=== PATIENT | female | born 1995 | race Caucasian/White ===

== ENCOUNTER 2017-02-10 20:11 | Inpatient (IN) | payer OTHER ==
[~2017-02-10] VITALS: Ht 165.1 cm; Wt 102.1 kg
[~2017-02-10 20:11] MED LIST: BENZTROPINE MESY1 M1 PO; FLUPHENAZINE HC10 M1 PO; FLUPHENAZINE HCL5 M1 PO; GABAPENTIN100 M2 PO; HYDROXYZINE PAM50 M1 PO; LITHIUM CARBON300 M6 PO; LITHIUM CARBON450 M1 PO; PRAZOSIN HCL1 M1 PO; VENLAFAXINE HC150 MG PO; VYVANSE40 M1 PO
--- NOTE | 2017-02-10 20:34 | ED GENERAL ADULT ---
History of Present Illness General Chief Complaint: Psychiatric Related Complaint Stated Complaint: TOOK ALMOST A WHOLE BOTTLE OF TYLENOL PER MOM +SI Source: patient, family Exam Limitations: no limitations Vital Signs & Intake/Output Vital Signs & Intake/Output Vital Signs Date Time Temp Pulse Resp B/P Pulse O2 O2 Flow FiO2 Ox Delivery Rate 02/10 2239 97.0 115 18 118/58 96 Room Air 02/11 2016 98.5 106 18 123/80 98 Room Air Allergies Coded Allergies: NO KNOWN ALLERGIES (10/07/16) Reconcile Medications Benztropine Mesylate 1 MG TABLET 1 TAB PO DAILY MENTAL HEALTH (Reported) Fluphenazine HCl 10 MG TABLET 1 TAB PO DAILY MENTAL HEALTH (Reported) Fluphenazine HCl 5 MG TABLET 3 TAB PO QPM MENTAL HEALTH (Reported) Gabapentin 100 MG CAPSULE 1 CAP PO TID MENTAL HEALTH (Reported) Hydroxyzine Pamoate 50 MG CAPSULE 1 CAP PO BIDP PRN MENTAL HEALTH (Reported) Lisdexamfetamine Dimesylate (Vyvanse) 40 MG CAPSULE 1 CAP PO DAILY ADD ( Reported) [place] Carbonate (Easton Carbonate ER) 450 MG TABLET.ER 1 TAB PO DAILY MENTAL HEALTH (Reported) [place] Carbonate ([place] Carbonate ER) 300 MG TABLET.ER 1 TAB PO QPM MENTAL HEALTH (Reported) [place] Carbonate ([place] Carbonate ER) 450 MG TABLET.ER 1 TAB PO QPM MENTAL HEALTH (Reported) PRAZOSIN HCL (Prazosin HCl) 1 MG CAPSULE 1 CAP PO DAILY PTSD (Reported) VENLAFAXINE HCL (Venlafaxine HCl ER) 150 MG CAP.ER.24H 1 CAP PO DAILY DEPRESSION (Reported) Triage Note: PT TO TRIAGE WITH HER MOTHER FOR +ST, PT TOOK 80-90 PILLS OF TYLENOL AT 7PM IN ORDER TO HURM HERSELF AND MADE A SUISIDAL STATEMENT TO HER MOTHER. PT AAOx3 ON ARRIVAL, FLAT AFFECT, DENIES ANY SYMPTOMS, VSS. HX OF BIPOLAR DISEASE, OD ON TYLENOL 08/2015 WITH ICU ADMISSION. PT DENIES HI, DENIES ETOH/ILLICIT DRUGS USE. Triage Nurses Notes Reviewed? yes Onset: Abrupt Duration: hour(s): Timing: recent history : No Patient currently breastfeeds: No HPI: 02/10/17 11 PM This is a 21-year-old female with a past medical history of bipolar disorder who at 7 PM this evening ingested ED 85, 500 mg Tylenol tablets. She denies any other ingestion. The onset of the symptoms were abrupt, the duration was just this evening at 7 PM. The severity is significant as her symptoms required her to come to the emergency department for care. Her 2 hour Tylenol level was greater than 300. I discussed the case with poison control and acetylcysteine IV therapy was initiated. The patient is being admitted to the hospital for further care. Dose for the acetylcysteine was reviewed with the poison control life consultant and that pharmacist Past History Travel History Traveled to [place] past 21 day No Medical History Any Pertinent Medical History? 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 Hospital admission with suicidal ideation along with Tylenol overdose History of MRSA: No History of VRE: No History of CDIFF: No Influenza Vaccine: 08/26/14 Tetanus Vaccine: 06/30/15 Surgical History Surgical History: N Psychosocial History Who do you live with Mother What is your primary language Turkmen Tobacco Use: Never used ETOH Use: denies use Illicit Drug Use: denies illicit drug use Family History Hx Contributory? No Review of Systems Review of Systems Constitutional: Denies: fever. EENTM: Reports: no symptoms. Respiratory: Reports: no symptoms. Cardiovascular: Reports: no symptoms. GI: Reports: vomiting. Denies: abdominal pain. Genitourinary: Reports: no symptoms. Musculoskeletal: Reports: no symptoms. Skin: Reports: no symptoms. Neurological/Psychological: Reports: depressed. Hematologic/Endocrine: Reports: no symptoms. Physical Exam Physical Exam General Appearance: alert, awake, anxious, mild distress Head: atraumatic, normal appearance Eyes: Bilateral: normal appearance, PERRL, EOMI. Ears, Nose, Throat: normal pharynx, normal ENT inspection Neck: normal inspection, supple Respiratory: normal breath sounds, chest non-tender Cardiovascular: regular rate/rhythm Peripheral Pulses: 4+ radial (R), 4+ radial (L) Gastrointestinal: non-tender Back: normal range of motion Extremities: normal range of motion Neurologic/Psych: awake, alert, oriented x 3 Skin: intact, normal color, warm/dry Core Measures ACS in differential dx? No CVA/TIA Diagnosis: No Severe Sepsis Present: No Septic Shock Present: No Progress Differential Diagnoses I considered the following diagnoses in my evaluation of the patient: [Tylenol overdose, depression, suicidal ideation] Plan of Care: Orders Procedure Date/time Status Nothing by Mouth 02/11 B Active Admit to inpatient 02/10 2315 Active Code Status 02/10 2315 Active URINE 02/11 2032 Complete URINALYSIS 02/11 2032 Complete PARTIAL THROMBOPLASTIN TIME 02/11 2032 Complete PROTHROMBIN TIME 02/11 2032 Complete URINE DRUG SCREEN FOR ER ONLY 02/11 2028 Complete ACETOMINOPHEN 02/11 2028 Complete SALICYLATE 02/11 2028 Complete ETHANOL 02/11 2028 Complete COMPREHENSIVE METABOLIC PANEL 02/11 2028 Complete CBC WITHOUT DIFFERENTIAL 02/11 2028 Complete Current Medications Sig/Jaison Start time Last Medication Dose Stop Time Status Admin Acetylcysteine 8,400 MG ONCE 02/10 0000 NR (Acetadote) 02/10 235 Dextrose/Water 200 ML (D5W) Acetylcysteine 2,800 MG ONCE 02/10 0000 NR (Acetadote) 02/10 235 Dextrose/Water 500 ML (D5W) Acetylcysteine 5,600 MG ONCE 02/10 0000 NR (Acetadote) 02/10 235 Dextrose/Water 1,000 ML (D5W 1000) Laboratory Tests 02/10/172109: Urine Opiates Screen < 100.00, Methadone Screen < 40, Barbiturate Screen < 60, Ur Phencyclidine Scrn < 6.00, Amphetamines Screen 130, U Benzodiazepines Scrn < 85, Urine Cocaine Screen < 50, Urine Cannabis Screen < 5.00, Urine Color YEL, Urine Clarity CLEAR, Urine pH 6.5, Ur Specific [place] <= 1.005, Urine Protein NEG, Urine Ketones NEG, Urine Nitrite NEG, Urine Bilirubin NEG, Urine Urobilinogen 0.2, Ur Leukocyte Esterase NEG, Ur Microscopic EXAM NOT REQUIRED, Urine Hemoglobin NEG, Urine Glucose NEG, Urine Test NEGATIVE 02/10/172105: Anion Gap 14, Estimated GFR > 60, BUN/Creatinine Ratio 13.3, Glucose 100 H, Calcium 9.7, Total Bilirubin 0.4, AST 17, ALT 31, Alkaline Phosphatase 117, Total Protein 7.6, Albumin 4.4, Globulin 3.2, Albumin/Globulin Ratio 1.4, PT 10.3, INR 0.98, APTT 29, CBC w Diff NO MAN DIFF REQ, RBC 4.78, MCV 87.8, MCH 29.6, RDW 12.9, MPV 7.1 L, Gran % 76.4 H, Lymphocytes % 14.6 L, Monocytes % 8.0, Eosinophils % 0.2, Basophils % 0.8, Absolute Granulocytes 8.7 H, Absolute Lymphocytes 1.7, Absolute Monocytes 0.9 H, Absolute Eosinophils 0, Absolute Basophils 0.1, PUBS MCHC 33.7, Salicylates < 1.0, Acetaminophen 357.0 *H, Serum Alcohol < 10.0 Initial ED EKG: none Departure Departure Disposition: STILL A PATIENT Condition: Stable Clinical Impression Primary Impression: Tylenol overdose Referrals: CAN KESSLER MD (PCP/Family) Departure Forms: Customer Survey General Discharge Information Admission Note Spoke With: LUNA NELSON MD Documentation of Exam: Documentation of any treatments & extenuating circumstances including Concerns Regarding Discharge (functional status, medication knowledge or non-compliance, living conditions, etc.) that warrant an admission rather than observation: [ Patient needs admission for IV acetylcysteine therapy, follow the liver enzymes, crisis consultation] Critical Care Note Critical Care Note Critical Care Time: 30-74 min
[2017-02-10 21:16] LABS: ABSOLUTE BASOPHIL COUNT 0.1 /CUMM (0.0-0.2); ABSOLUTE EOSINOPHIL COUNT 0 /CUMM (0.0-0.7); ABSOLUTE GRANULOCYTE CT 8.7 /CUMM (1.4-6.5); ABSOLUTE LYMPH COUNT 1.7 /CUMM (1.2-3.4); ABSOLUTE MONOCYTE COUNT 0.9 /CUMM (0.10-0.60); BASOPHIL % 0.8 % (0.0-2.0); EOSINOPHIL % 0.2 % (0-5); GRANULOCYTE % 76.4 % (42.2-75.2); HEMATOCRIT 41.9 % (37-47); MEAN CORPUSCULAR HGB 29.6 PG (27.0-31.0); MEAN CORPUSCULAR HGB CONC 33.7 G/DL (33.0-37.0); MEAN CORPUSCULAR VOLUME 87.8 FL (81.0-99.0); MEAN PLATELET VOLUME 7.1 FL (7.4-10.4); PLATELET COUNT 369 /CUMM (130-400); RBC DISTRIBUTION WIDTH 12.9 % (11.5-14.5); RED BLOOD CELL CT 4.78 /CUMM (4.20-5.40); WHITE BLOOD CELL COUNT 11.3 /CUMM (4.8-10.8)
[2017-02-10 21:25] LABS: PT 10.3 SEC (9.4-12.5); PTT 29 SEC (25-37)
--- NOTE | 2017-02-11 00:20 | History & Physical ---
ANY ALLEN,SUZIE 02/11/17 0020: General Information and HPI MD Statement: I have seen and personally examined DREW VERA and documented this H&P. The patient is a 21 year old F who presented with a patient stated chief complaint of [Tylenol overdose]. Source of Information: patient, family, old records Exam Limitations: no limitations History of Present Illness: This is a 21-year-old female past medical history significant for suicide attempt with Tylenol ingestion in September 2014, anxiety, depression, hypothyroidism binge eating disorder, bipolar, with admissions in [facility] twice in 2015 and once in 2013. She comes in with a chief complaint of Tylenol overdose. She took 87 extra strength Tylenol in attempt to self-harm. She stated she had suicidal ideation and proceeded to act on it through overdose. Per mother, who was in the room during interview, noted that the patient was behaving a little distant and with further prodding, patient admitted the ingestion. Per mother, patient saw her psychiatrist about 2 weeks ago who changed her medication regimen. Abilify 5 mg was added to her regimen. Per patient since starting the medication she has felt depressed with more thoughts of self-harm in the past 2 weeks. Patient has history of alcohol use, marijuana use, distant crack cocaine use. U tox negative for alcohol, Tylenol at 357. 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 Hospital admission with suicidal ideation along with Tylenol overdose History of MRSA: No History of VRE: No History of CDIFF: No Influenza Vaccine: 08/26/14 Tetanus Vaccine: 06/30/15 Surgical History Surgical History: N Past Family/Social History Psychosocial History Who Do You Live With? parent Primary Language: Icelandic ETOH Use: denies use Illicit Drug Use: denies illicit drug use Living Will? 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 unknown Functional Ability ADLs Independent: dressing, eating, toileting, bathing. Ambulation: independent IADLs Independent: shopping, housework, finances, food prep, telephone, transportation , medication admin. Sexual History Sexual Orientation Homosexual Review of Systems Review of Systems Constitutional: Denies: chills, diaphoresis, fever, malaise, weakness. EENTM: Reports: no symptoms. Cardiovascular: Denies: chest pain, palpitations. Respiratory: Denies: cough, short of breath. GI: Reports: abdominal pain, nausea, vomiting. Genitourinary: Reports: no symptoms. Musculoskeletal: Reports: no symptoms. Skin: Reports: no symptoms. Neurological/Psychological: Reports: depressed, emotional problems. Exam & Diagnostic Data Last 24 Hrs of Vital Signs/I&O Vital Signs Date Time Temp Pulse Resp B/P Pulse O2 O2 Flow FiO2 Ox Delivery Rate 02/11 0205 97.7 83 20 100/70 96 Room Air 02/11 0159 Room Air 02/11 0106 97.2 98 18 120/63 97 Room Air 02/10 2239 97.0 115 18 118/58 96 Room Air 02/10 2016 98.5 106 18 123/80 98 Room Air Intake & Output 02/11 0800 02/11 0000 02/10 1600 Intake Total Output Total Balance Patient 102.058 kg 56.699 kg Weight Physical Exam General Appearance Alert, Oriented X3, Cooperative, No Acute Distress Skin No Significant Lesion HEENT Atraumatic, PERRLA, EOMI, Mucous Membr. moist/pink Neck Supple Cardiovascular Regular Rate, Normal S1, Normal S2, No Murmurs Lungs Clear to Auscultation, Normal Air Movement Abdomen patient has some tenderness to deep palpation about 2 inches superior to the umbilicus on the left side. Bowel sounds present. No rebound, no guarding. Abdomen soft Neurological Normal Speech, Cranial Nerves 3-12 NL Extremities No Clubbing, No Edema, Normal Pulses Last 24 Hrs of Labs/Danie: Laboratory Tests 02/11/17 0123: Anion Gap 16, Estimated GFR > 60, BUN/Creatinine Ratio 20.0, Total Bilirubin 0.4 , Direct Bilirubin 0.4, AST 14, ALT 32, Alkaline Phosphatase 48, Total Protein 7.4, Albumin 4.3, Acetaminophen 233.0 *H 02/10/17 2110: Urine Opiates Screen < 100.00, Methadone Screen < 40, Barbiturate Screen < 60, Ur Phencyclidine Scrn < 6.00, Amphetamines Screen 130, U Benzodiazepines Scrn < 85, Urine Cocaine Screen < 50, Urine Cannabis Screen < 5.00, Urine Color YEL, Urine Clarity CLEAR, Urine pH 6.5, Ur Specific [place] <= 1.005, Urine Protein NEG, Urine Ketones NEG, Urine Nitrite NEG, Urine Bilirubin NEG, Urine Urobilinogen 0.2, Ur Leukocyte Esterase NEG, Ur Microscopic EXAM NOT REQUIRED, Urine Hemoglobin NEG, Urine Glucose NEG, Urine Test NEGATIVE 02/10/172105: Anion Gap 14, Estimated GFR > 60, BUN/Creatinine Ratio 13.3, Glucose 100 H, Calcium 9.7, Total Bilirubin 0.4, AST 17, ALT 31, Alkaline Phosphatase 117, Total Protein 7.6, Albumin 4.4, Globulin 3.2, Albumin/Globulin Ratio 1.4, PT 10.3, INR 0.98, APTT 29, CBC w Diff NO MAN DIFF REQ, RBC 4.78, MCV 87.8, MCH 29.6, RDW 12.9, MPV 7.1 L, Gran % 76.4 H, Lymphocytes % 14.6 L, Monocytes % 8.0, Eosinophils % 0.2, Basophils % 0.8, Absolute Granulocytes 8.7 H, Absolute Lymphocytes 1.7, Absolute Monocytes 0.9 H, Absolute Eosinophils 0, Absolute Basophils 0.1, PUBS MCHC 33.7, Salicylates < 1.0, Acetaminophen 357.0 *H, Serum Alcohol < 10.0 Assessment/Plan Assessment: This is a 21-year-old female with past medical history significant for previous suicide attempt with Tylenol overdose, significant psychiatric history including suicidal ideation, anxiety, depression, bipolar, who comes in with chief complaint of Tylenol ingestion and suicide attempt. ED workup shows: White count 11.3, hemoglobin 14.1, hematocrit 41.9. INR 0.98 initially. Tylenol level 357, subsequently 233. Initial BEP within normal limits with creatinine 0.6. Plan: 1. Tylenol overdose: Poison control was called by resident and they advised how to best proceed. Loading dose of NAC followed by maintenance doses. Recheck Tylenol level and CBC/CMP at 6 AM and 6 PM * NAC per poison control * IV fluids * Follow-up labs 2. Suicidal ideation: Patient had recent medication changes which could contribute to her suicidal ideation. Denies any acute stressor in life. She sees as her psychiatrist. * One-to-one sitter * Psychiatric consult * Social work consult * Hold Wellbutrin * Hold Abilify 3.Hypothyroidism: Chronic and stable * Continue levothyroxine 4. 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 * Continue Aldactone Full code Nothing by mouth Chemical DVT prophylaxis As Ranked By This Provider Problem List: 1. Bipolar 1 disorder 2. Suicidal ideation 3. Major depression 4. Tylenol overdose 5. Depression with suicidal ideation Core Measures/Miscellaneous Acute Coronary Syndrome ACS Diagnosis: No Cerebrovascular Accident CVA/TIA Diagnosis: No Congestive Heart Failure CHF Diagnosis: No Venous Thromboembolism VTE Risk Factors: No Risk Factors No [facility] VTE prophylaxis d/t: No contraindications No VTE Pharm Prophylaxis d/t: No contraindications VTE Diagnosis: No VTE Type: NONE VTE Confirmed by (Test): NONE Severe Sepsis Severe Sepsis Present: No Septic Shock Septic Shock Present: No Miscellaneous Documentation Attending Case Discussed With: LUNA NELSON MD Primary Care Physician: CAN KESSLER MD Patient sees these Specialists Dr. Ortiz Level of Patient Care: General Medicine Consults Needed: Consulting Specialty: Psychiatry CARLTON NELSON MD 02/11/17 0049: General Information and HPI Allergies/Medications Home Med list Aripiprazole 5 MG TABLET 1 TAB PO DAILY DEPRESSION (Reported) Bupropion HCl (Bupropion XL) 150 MG TAB.ER.24H 1 TAB PO DAILY DEPRESSION ( Reported) Ergocalciferol (Vitamin D2) (Vitamin D2) 50,000 UNIT CAPSULE 1 CAP PO QW VITAMIN D (Reported) Gabapentin 300 MG CAPSULE 1 CAP PO TID DEPRESSION (Reported) Levothyroxine Sodium 50 MCG TABLET 1 TAB PO DAILY HYPOTHYROID (Reported) Lisdexamfetamine Dimesylate (Vyvanse) 40 MG CAPSULE 1 CAP PO DAILY ADD ( Reported) Prazosin HCl 1 MG CAPSULE 1 CAP PO DAILY PTSD (Reported) Spironolactone 25 MG TABLET 1 TAB PO DAILY ELEVATED TESTOSTERONE (Reported) Venlafaxine HCl (Venlafaxine HCl ER) 150 MG CAP.ER.24H 1 CAP PO DAILY DEPRESSION (Reported) Attending MD Review Statement Attending Statement Attending MD Statement: examined this patient, discuss w/resident/PA/SANDWICH ARTIST, agreed w/resident/PA/SANDWICH ARTIST, discussed with family Attending Assessment/Plan: 21 yo F with h/o bipolar disorder, hypothyroidism, hyperandrogenemia 2/2 previous lithium use, multiple inpatient Psych admissions for depression/ SI, is brought in by mother, for intentional drug overdose in a suicide attempts. Patient reports she consumed 87 pills of extra-strength Tylenol (500 mg) around 7 pm. Patient's psychiatrist (Dr. Holly) added new meds viz. Abilify and Wellbutrin for managing her depression, which the patient feels did not help and made her depression worse. She was last admitted for similar tylenol overdose in Aug 2014. She denies nausea or vomiting, but reports mid-abdominal discomfort since coming into the ER. She is an ex-smoker (2012), denies alcohol use, last used marijuana (Aug 2016) and crack cocaine (May 2016). She does not have a definitive diagnosis of ADD, hence she was taken off Vyvanse. VSS. Exam unremarkable. Labs: WBC 11.3, INR 0.98, LFTs normal, UA clear. Tylenol level 357. Salicylate < 1.0, alcohol < 10, Utox neg. 1. Intentional drug overdose, suicide attempt, tylenol toxicity. GM admit, aspiration precautions, initiate NAC per protocol, Poison control contacted. Repeat LFTs, Tylenol level at 1 am, recheck labs (LFT, coags, BEP, tylenol level ) at 6 am and 6 pm. Monitor liver and renal functions. Monitor for signs of encephalopathy. Low threshold to transfer to ICU. Keep NPO, IV fluids and IV PPI. Maintain 1:1 sitter, Psych consult in AM. No NSAIDs or hepatotoxic drugs. 2. Bipolar disorder. Hold off on abilify, wellbutrin, consult Psych in AM. 3. Hypothyroidism. Ct. Synthroid. 4. Hyperandrogenemia 2/2 lithium use. Hold aldactone for now. 5. Leukocytosis likely reactive. DVT ppx Alps (low risk). Full code. MARIANNE ALLEN,KALLI 02/11/17 0335: Resident Review Statement Resident Statement: examined this patient, discussed with tax services intern, agreed with tax services intern, discussed with family, reviewed EMR data (avail), discussed with nursing , discussed with case mgmt, reviewed images, amended to note Other Findings: Pavan is 21-year-old woman medical history anxiety bipolar disorder depression and ADD. Suicide attempt, Tylenol overdose. Now presents after ingesting an entire bottle of Tylenol. Vitals stable. Labs notable for a moderate leukocytosis, an elevated Tylenol level. Breasts toxicology screen is negative. This patient has clearly developed Tylenol toxicity, and president LFTs are not elevated. Discussed the case over the phone with [facility]. - Problems - Tylenol overdose Suicidal ideation Hypothyroidism - Plan - Begin NAC - 150mg/kg loading dose - then 4hr infusion 50mg/kg - then 16hr infusion 100mg/kg Recheck labs at midnight, 6 am, and 6pm per Poison control. If she develops transfusion reaction to NAC: hold infusion, administer bendaryl &/or steroids, resume infusion at lower rate. Protonix iv Hold psych meds Cont. synthroid, and spirinolactone DVT ppx alps
[2017-02-11] MEDS ORDERED: SPIRONOLACTONE25 M1 PO (00:39)
[2017-02-11] MEDS ORDERED: VITAMIN D250000 UNIT PO (00:45)
[2017-02-11] MEDS ORDERED: BUPROPION XL150 MG PO (00:46)
[2017-02-11] MEDS ORDERED: GABAPENTIN300 M2 PO (00:46)
[2017-02-11] MEDS ORDERED: ARIPIPRAZOLE5 M1 PO (00:47)
[2017-02-11] MEDS ORDERED: LEVOTHYROXINE50 MCG PO (00:47)
--- NOTE | 2017-02-11 00:49 | Admission Certification ---
Admission Certification Certification Statement - As attending physician, I certify that at the time of - admission, based on clinical presentation, severity of - symptoms, need for further diagnostic testing and - therapeutic interventions, and risk of adverse outcomes - without in-hospital treatment, in my clinical assessment, - this patient requires an acute hospital stay for a minimum - of two nights or longer. I have also considered psychsocial - factors such as support system, advanced age, financial - issues, cognitive issues, and failed out-patient treatments, - past re-admission history, safety of patient, and lack of - compliance as applicable. Specific rationale supporting this admission is: Intentional overdose in a suicide attempt, tylenol toxicity.
[2017-02-11 02:05] VITALS: BP 100/70
[2017-02-11 06:37] VITALS: BP 114/60
--- NOTE | 2017-02-11 12:24 | PN- Att Addend ---
Attending Addendum Attending Brief Note Patient seen and examined. Plan of care discussed with the medical team and the patient. Available lab work and radiology test reports were reviewed. Patient awake alert oriented and without any distress. Denies any pain fever chills nausea vomiting. Vital Signs Date Time Temp Pulse Resp B/P Pulse O2 O2 Flow FiO2 Ox Delivery Rate 02/11 0637 98.0 77 20 114/60 96 Room Air 02/11 0205 97.7 83 20 100/70 96 Room Air 02/11 0159 Room Air 02/11 0106 97.2 98 18 120/63 97 Room Air 02/10 2239 97.0 115 18 118/58 96 Room Air 02/10 2016 98.5 106 18 123/80 98 Room Air Intake & Output 02/11 1600 02/11 0800 02/11 0000 Intake Total 590 Output Total Balance 590 Intake, IV 590 Patient 225 lb 125 lb Weight Exam: General: Patient awake alert oriented without any distress CVS: S1 plus S2 without any murmur or gallops Chest: Few scattered crepitation without any wheeze. There is no respiratory distress. Abdomen: Soft nontender, bowel sound present, no guarding or rebound BUILDING SURVEYOR: Awake alert oriented without any focal neuro deficit and follows command appropriately Extremities: No edema; no clubbing or cyanosis noted Laboratory Tests 02/11 02/11 02/10 0710 0123 2110 Chemistry Sodium (137 - 145 mmol/L) 137 136 L Potassium (3.5 - 5.1 mmol/L) 4.0 4.0 Chloride (98 - 107 mmol/L) 100 97 L Carbon Dioxide (22 - 30 mmol/L) 24 23 Anion Gap (5 - 16) 12 16 BUN (7 - 17 mg/dL) 8 8 Creatinine (0.5 - 1.0 mg/dL) 0.6 0.4 L Estimated GFR (>60 ml/min) > 60 > 60 BUN/Creatinine Ratio (7 - 25 %) 13.3 20.0 Total Bilirubin (0.2 - 1.3 mg/dL) 0.5 0.4 Direct Bilirubin (< 0.4 mg/dL) 0.4 0.4 AST (14 - 36 U/L) 12 L 14 ALT (9 - 52 U/L) 28 32 Alkaline Phosphatase (<127 U/L) 93 48 Total Protein (6.3 - 8.2 g/dL) 6.9 7.4 Albumin (3.5 - 5.0 g/dL) 3.9 4.3 Coagulation PT (9.4 - 12.5 SEC) 13.0 H INR (0.90 - 1.19) 1.24 H Toxicology Urine Opiates Screen (>2000 NG/ML) < 100.00 Methadone Screen (>300 NG/ML) < 40 Acetaminophen (10.0 - 30.0 ug/mL) 66.0 *H 233.0 *H Barbiturate Screen (>200 NG/ML) < 60 Ur Phencyclidine Scrn (>25 NG/ML) < 6.00 Amphetamines Screen (>1000 NG/ML) 130 U Benzodiazepines Scrn (>200 NG/ML) < 85 Urine Cocaine Screen (>300 NG/ML) < 50 Urine Cannabis Screen (>50 NG/ML) < 5.00 Urines Urine Color (YEL,AMB,STR) YEL Urine Clarity (CLEAR) CLEAR Urine pH (5.0 - 8.0) 6.5 Ur Specific [place] (1.001 - 1.035) <= 1.005 Urine Protein (NEG,<30 MG/DL) NEG Urine Ketones (NEG) NEG Urine Nitrite (NEG) NEG Urine Bilirubin (NEG) NEG Urine Urobilinogen (0.1 - 1.0 EU/dl) 0.2 Ur Leukocyte Esterase (NEG) NEG Ur Microscopic EXAM NOT REQUIRED Urine Hemoglobin (NEG) NEG Urine Glucose (N MG/DL) NEG Urine Test NEGATIVE 02/10 2106 Chemistry Sodium (137 - 145 mmol/L) 138 Potassium (3.5 - 5.1 mmol/L) 4.3 Chloride (98 - 107 mmol/L) 100 Carbon Dioxide (22 - 30 mmol/L) 23 Anion Gap (5 - 16) 14 BUN (7 - 17 mg/dL) 8 Creatinine (0.5 - 1.0 mg/dL) 0.6 Estimated GFR (>60 ml/min) > 60 BUN/Creatinine Ratio (7 - 25 %) 13.3 Glucose (65 - 99 mg/dL) 100 H Calcium (8.4 - 10.2 mg/dL) 9.7 Total Bilirubin (0.2 - 1.3 mg/dL) 0.4 AST (14 - 36 U/L) 17 ALT (9 - 52 U/L) 31 Alkaline Phosphatase (<127 U/L) 117 Total Protein (6.3 - 8.2 g/dL) 7.6 Albumin (3.5 - 5.0 g/dL) 4.4 Globulin (1.9 - 4.2 gm/dL) 3.2 Albumin/Globulin Ratio (1.1 - 2.2 %) 1.4 Coagulation PT (9.4 - 12.5 SEC) 10.3 INR (0.90 - 1.19) 0.98 APTT (25 - 37 SEC) 29 Hematology CBC w Diff NO MAN DIFF REQ WBC (4.8 - 10.8 /CUMM) 11.3 H RBC (4.20 - 5.40 /CUMM) 4.78 Hgb (12.0 - 16.0 G/DL) 14.1 Hct (37 - 47 %) 41.9 MCV (81.0 - 99.0 FL) 87.8 MCH (27.0 - 31.0 PG) 29.6 RDW (11.5 - 14.5 %) 12.9 Plt Count (130 - 400 /CUMM) 369 MPV (7.4 - 10.4 FL) 7.1 L Gran % (42.2 - 75.2 %) 76.4 H Lymphocytes % (20.5 - 51.1 %) 14.6 L Monocytes % (1.7 - 9.3 %) 8.0 Eosinophils % (0 - 5 %) 0.2 Basophils % (0.0 - 2.0 %) 0.8 Absolute Granulocytes (1.4 - 6.5 /CUMM) 8.7 H Absolute Lymphocytes (1.2 - 3.4 /CUMM) 1.7 Absolute Monocytes (0.10 - 0.60 /CUMM) 0.9 H Absolute Eosinophils (0.0 - 0.7 /CUMM) 0 Absolute Basophils (0.0 - 0.2 /CUMM) 0.1 PUBS MCHC (33.0 - 37.0 G/DL) 33.7 Toxicology Salicylates (0 - 20.0 mg/dL) < 1.0 Acetaminophen (10.0 - 30.0 ug/mL) 357.0 *H Serum Alcohol (<10 MG/DL) < 10.0 Assessment * Tylenol overdose * Suicide ideation * History of depression * Hypothyroidism Plan * Continue sitter * Rechecked on a level later today * Continue NAC * Psychiatry consult * Patient can be allowed to eat
--- NOTE | 2017-02-11 13:28 | Cons- Psychiatry ---
Psychiatric Consult Date of Consult: 02/11/17 Reason for Consult: Overdose on Tylenol History of Present Illness: The patient is a 21-year-old single white female who was admitted to the medical floor following an overdose on Tylenol. The patient reported that this was an impulsive act. She did not premeditate the overdose. She reported that there were no specific precipitants. She reported that she has been unhappy with my life since the change in medication. psychiatrist Dr. Angel M.D. in [place]. And with her therapist Aarti Mai (? Spelling). The patient reported that she has been previously inpatient 3 times before, 2 of them at [facility] and one of them at [facility]. The patient also reported that she did intensive outpatient treatment before including one at [facility] intensive outpatient program. His previous admissions where in 2013 and twice in 2015 the patient reported that about 2 weeks ago there were a change in her medication and that she wasnt upfront about her condition with her psychiatrist saying that she reported that she was doing well when in fact she wasnt. Past psychiatric history she reported 3 previous inpatient psychiatric admissions at [facility] in 2013 at [place] in 2015 and at [facility] again in 2015. There was at least one prior suicide attempt by an overdose on Tylenol as well in September 2014. The patient reported that she has history of bipolar mood disorder. She reported that she had episodes of psychosis in the past and she attributed that to sleep deprivation and stress at her job. She reported that in the past she has been on all kinds of different medications. When asked about psychosis she reported that she was having delusions and thinking that she was the David Olu when she had than manic episode she reported that she wasnt sleeping at that time and she was receiving secret messages from the subtitles on the TV and she was hearing whispering voices. She also reported that she was feeling that peoples eyes were black suggesting that they may have been possessed. She did report that at the time of having these psychotic symptoms that she was using marijuana and alcohol. Alcohol and substance abuse history The patient acknowledged that in the past she had had issues with alcohol and marijuana and had minimal crack cocaine use in the past. When she arrived to the hospital this time around her urine toxicology was negative for alcohol. Medical and surgical history Please refer to the history and physical examination performed by Dr. Oralia Jones M.D. on 02/10/2017. Allergies no known drug allergies Home medications: Abilify 5 mg once daily Wellbutrin XL 150 mg once daily gabapentin 300 mg 3 times daily levothyroxine 50 g once daily Spironolactone 25 mg once daily. Developmental and personal, and social history: The patient reported that she currently lives with her mother and her sister. She reported that she does get along with her sister and her mother. She reported that her mother is concerned about her condition and she may feel that the patient needs an inpatient psychiatric admission. The patient reported that she lives in [facility] Family history: The patients reported that she believes her mothers sister has bipolar disorder. Patient reported that she herself was diagnosed with bipolar in September 2016. There has been no family history of suicides. Mental status examination: The patient was alert and oriented. She showed good eye contact. She was calm and collected. She was cooperative and pleasant. She reported that her desire is not to go inpatient but will follow up with her outpatient psychiatrist and outpatient therapist and to be more honest with them. The patient showed normal psychomotor activity there was no agitation no abnormal movements and no tremors. The patients speech was normal she was not pressured. The patients thought process was coherent and there was no evidence of thought disorder. There were no delusions. She denied recent hallucinations. There was no impairment in her memory she showed good attention and concentration. She seems to have good insight into her current situation and seemed to have good judgment in hypothetical situations. I thought her reliability was very good. She seems to be of average intelligence. Assessment: A 20 is a 21-year-old single white female who was admitted to the medical floor following an overdose on Tylenol. She has history of bipolar 1 disorder and has been previously in psychiatric hospitals 3 times before. She does have an outpatient psychiatrist and an outpatient therapist. There had been recent visits with medication changes about 2 weeks earlier. The patient currently does not exhibit any manic symptoms. There were no psychotic symptoms. She does acknowledge that depression has been an issue and that she has had thoughts of suicide recently. She reported that her suicide attempt was impulsive and was not preplanned. Her goal is outpatient treatment and not inpatient treatment. She believes that previously inpatient treatment and intensive outpatient programs were not particularly helpful. She seems to have a good relationship with her psychiatrist and her therapist. Diagnostic impression: Bipolar 1 disorder most recent episode depressed history of alcohol and marijuana use disorder. Some borderline traits. Recommendations: 1. The patients needs another evaluation by the consultation liaison psychiatry service before her discharge. 2. She does not need one-to-one observation status at this point. 3. The patient did not wants medication changes at this point. 4. She was receptive to discussing medication adjustments in her antidepressant as well as Abilify dose with her outpatient psychiatrist. I recommend continuing her current medications as they are.: Abilify 5 mg once daily Wellbutrin XL 150 mg once daily gabapentin 300 mg 3 times daily (please note that the patient is no longer on Vyvanse, not on prazosin and not on Effexor) Allergies: Coded Allergies: NO KNOWN ALLERGIES (10/07/16) Past History Psychosocial History Strengths/Capabilities: Supportive family Engaged in therapy Desire to feel better Physical Limitations (Interventions): None identified
[2017-02-11 15:02] VITALS: BP 110/71
[2017-02-11 20:19] LABS: PT 13.5 SEC (9.4-12.5)
[2017-02-11 21:57] VITALS: BP 136/67
--- NOTE | 2017-02-11 23:00 | Event Note ---
Event Note Event Note: Poison control called nursing staff on floor. Latest labs were relayed and poison control recommended that NAC could be stopped after current infusion. Will d/c medication after latest dose.
[2017-02-12 07:12] VITALS: BP 106/66
--- NOTE | 2017-02-12 07:34 | PN- Housestaff ---
TONEY ALLEN,[facility] 02/12/17 0734: Subjective Follow-up For: Suicidal attempt Acetaminophen overdose Subjective: Patient was seen and examined today, she responded appropriately to all questions, she denied any chest pain, palpitation, abdominal pain, nausea vomiting, diarrhea, lightheadedness. Patient had one-to-one sitter. Review of Systems Constitutional: Reports: see HPI. Objective Last 24 Hrs of Vital Signs/I&O Vital Signs Date Time Temp Pulse Resp B/P Pulse O2 O2 Flow FiO2 Ox Delivery Rate 02/12 1447 98.9 89 20 106/58 96 Room Air 02/12 0712 97.8 64 20 106/66 97 02/11 2157 98.5 71 18 136/67 18 02/11 1502 98.3 85 20 110/71 95 Room Air Intake & Output 02/12 1600 02/12 0800 02/12 0000 Intake Total 203 1100 Output Total Balance 203 1100 Intake, IV 83 500 Intake, Oral 120 600 Physical Exam General Appearance: Alert, Oriented X3, Cooperative, No Acute Distress Skin: No Rashes, No Breakdown, No Significant Lesion HEENT: Atraumatic, PERRLA, EOMI, Mucous Membr. moist/pink Neck: Supple Cardiovascular: Regular Rate, Normal S1, Normal S2, No Murmurs Lungs: Clear to Auscultation, Normal Air Movement Abdomen: Normal Bowel Sounds, Soft, No Tenderness Neurological: Normal Gait, Normal Speech, Strength at 5/5 X4 Ext, Normal Tone, Sensation Intact, Cranial Nerves 3-12 NL, Reflexes 2+ Extremities: No Clubbing, No Cyanosis, No Edema, Normal Pulses Assessment/Plan Assessment: Mrs. Cullen is 21-year-old female with past medical history significant for previous suicide attempt September 2014 with Tylenol overdose, significant psychiatric history including suicidal ideation/attempt, anxiety, depression, bipolar, who comes in with chief complaint of suicidal attempt with a 87 tab of extra strength Tylenol ingestion. Plan: 1. Tylenol overdose: -Poison control was on board, the patient received loading dose of increased nonsustained followed by maintenance dose and frequent checking of acetaminophen blood level -NAC was discontinued yesterday based on poison control recommendation -Acetaminophen blood level normalized -No abnormal LFTs -Patient denied any abdominal pain, nausea, vomiting, diarrhea -Vital signs remained stable, afebrile 2. Suicidal ideation: -Psychiatric consultation was obtained, will follow recommendation -Continue home psych medication (Abilify 5 mg once daily, Wellbutrin XL 150 mg once daily , gabapentin 300 mg 3 times daily) -Continue one-to-one sitter 3.Hypothyroidism: Chronic and stable * Continue levothyroxine 4. 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 * Continue Aldactone Code Full code Diet regular, finger foods only DVT prophylaxis Alps Consultations psych Problem List: 1. Depression with suicidal ideation 2. Tylenol overdose Pain Ratin Pain Location: None Pain Goal: Pain 4 or less Pain Plan: Mild pain pathway Tomorrow's Labs & Rationales: None Consulting Request: Consulting Specialty: Psychiatry DEANDRA BROCK MD 02/12/17 1526: Attending MD Review Statement Attending Statement Attending MD Statement: examined this patient, discuss w/resident/PA/HEART DOCTOR, agreed w/resident/PA/HEART DOCTOR, discussed with family, reviewed EMR data (avail), discussed with nursing, discussed with case mgmt, amended to note Attending Assessment/Plan: The patient was seen and discussed with house staff. Agree with the plan of care as outlined. Psychiatry input appreciated.
[2017-02-12 08:23] LABS: ABSOLUTE BASOPHIL COUNT 0 /CUMM (0.0-0.2); ABSOLUTE EOSINOPHIL COUNT 0.1 /CUMM (0.0-0.7); ABSOLUTE GRANULOCYTE CT 3.7 /CUMM (1.4-6.5); ABSOLUTE LYMPH COUNT 2.2 /CUMM (1.2-3.4); ABSOLUTE MONOCYTE COUNT 0.5 /CUMM (0.10-0.60); BASOPHIL % 0.4 % (0.0-2.0); EOSINOPHIL % 1.3 % (0-5); GRANULOCYTE % 56.6 % (42.2-75.2); HEMATOCRIT 40.7 % (37-47); MEAN CORPUSCULAR HGB 29.6 PG (27.0-31.0); MEAN CORPUSCULAR HGB CONC 33.4 G/DL (33.0-37.0); MEAN CORPUSCULAR VOLUME 88.9 FL (81.0-99.0); MEAN PLATELET VOLUME 7.6 FL (7.4-10.4); PLATELET COUNT 332 /CUMM (130-400); RBC DISTRIBUTION WIDTH 13.4 % (11.5-14.5); RED BLOOD CELL CT 4.58 /CUMM (4.20-5.40); WHITE BLOOD CELL COUNT 6.6 /CUMM (4.8-10.8)
--- NOTE | 2017-02-12 11:22 | PN- Psychiatry ---
Assessment/Plan Impression: 21 y.o. female reported to her mother that she had attempted suicide by ingestion of a large amount of Tylenol. She states that she had not been honest with her psychiatrist, nor her therapist , about her suicidal ideation and unhappiness with her medicaiton regimen. She has been having +SI for about 2 months, or shortly after her lithium had been stopped by her psychiatrist. She denies any triggering event. She states that being home during the say with nothing to do with no purpose had a negative impact on her mood. "I'm not happy with myself." She is applying for work at [employer]. Bried DBT intervention today on rational/emotional/crain mind. This is her second suicide attempt by Tylenol that we are aware of since 2013. She has signed releases allowing us to speak with her psychiatrist, Dr. Bernadette Holly, and her nopther. Suggestion: 1. The patient is not to leave the hospital AMA, or otherwise. a. A partially completed PEC has been placed in the chart for completion and signature of the attending physician. b. Please maintain the 1:1 safety monitor. 2. Continue Abilify 5 mg PO daily 3. Continue bupropion XL 150 mg PO daily 4. Please advise when the patient is medically clear, and we will re-evaluate her. Thank-you for asking us to assist with Mimi's care. We will continue to follow along. Domingo Nichols APRN, Pager [phone] Subjective Subjective: The patient was seen today, 02/12/17, at 1015 in room 206. The 1:1 safety monitor is present, but left for the exam. A+OX4 Depression 4/10, anxiety 0/10; 10/10 is the worst. Denies hopelessness/ helplessness/worthlessness. Denies AVH; presents no sotero delusions. Denies recent use of alcohol or drugs. Sleep is restful at home, but interrupted. Appetite is poor at home. She reports that she has not been honest with her therapist, whom she sees weekly, nor with her psychiatrist, Dr. Bernadette Holly, whom she sees monthly. Specifically, she has been having suicidal ideation for several months, and she has had feelings of hopelessness regarding her medication regimen. She reports that she is home all the time, which she feels is part of the problem. 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 She currently denies suicidal or homicidal ideation. She denies paranoia. Review of Systems: Objective Last 24 Hrs of Vital Signs/I&O Vital Signs Date Time Temp Pulse Resp B/P Pulse O2 O2 Flow FiO2 Ox Delivery Rate 02/12 0712 97.8 64 20 106/66 97 02/11 2157 98.5 71 18 136/67 18 02/11 1502 98.3 85 20 110/71 95 Room Air Intake & Output 02/12 1600 02/12 0800 02/12 0000 Intake Total 203 1100 Output Total Balance 203 1100 Intake, IV 83 500 Intake, Oral 120 600 Current Medications: Current Medications Sig/Jaison Start time Last Medication Dose Route Stop Time Status Admin Acetylcysteine 5,600 MG ONCE ONE 02/11 042 DC 02/11 Dextrose/Water 972 ML IV 02/11 2019 045 Aripiprazole 5 MG DAILY 02/11 2042 AC 02/12 PO 0820 Bupropion HCl 150 MG DAILY 02/11 2043 AC 02/12 PO 0820 Diphenhydramine HCl 25 MG Q6P PRN 02/11 0045 AC IV Gabapentin 300 MG TID 02/11 2200 AC 02/12 PO 0820 Ibuprofen 600 MG Q6P PRN 02/11 0045 AC PO Levothyroxine Sodium 0.05 MG DAILY AC 02/11 0700 AC 02/12 PO 0527 Morphine Sulfate 2 MG Q4P PRN 02/11 0045 AC IV Ondansetron HCl 4 MG Q6P PRN 02/11 0045 AC IV Pantoprazole Sodium 40 MG DAILY 02/11 0145 AC 02/12 IV 0820 Results Last 24 Hrs of Labs/Mics: Laboratory Tests 02/12 02/11 0625 1935 Chemistry Sodium (137 - 145 mmol/L) 139 138 Potassium (3.5 - 5.1 mmol/L) 4.0 3.9 Chloride (98 - 107 mmol/L) 103 100 Carbon Dioxide (22 - 30 mmol/L) 26 26 Anion Gap (5 - 16) 10 13 BUN (7 - 17 mg/dL) 10 9 Creatinine (0.5 - 1.0 mg/dL) 0.7 0.6 Estimated GFR (>60 ml/min) > 60 > 60 BUN/Creatinine Ratio (7 - 25 %) 14.3 15.0 Total Bilirubin (0.2 - 1.3 mg/dL) 0.5 0.4 Direct Bilirubin (< 0.4 mg/dL) 0.3 0.3 AST (14 - 36 U/L) 11 L 12 L ALT (9 - 52 U/L) 32 30 Alkaline Phosphatase (<127 U/L) 93 88 Total Protein (6.3 - 8.2 g/dL) 6.8 7.1 Albumin (3.5 - 5.0 g/dL) 3.8 4.1 Coagulation PT (9.4 - 12.5 SEC) 13.5 H INR (0.90 - 1.19) 1.29 H Hematology CBC w Diff NO MAN DIFF REQ WBC (4.8 - 10.8 /CUMM) 6.6 RBC (4.20 - 5.40 /CUMM) 4.58 Hgb (12.0 - 16.0 G/DL) 13.6 Hct (37 - 47 %) 40.7 MCV (81.0 - 99.0 FL) 88.9 MCH (27.0 - 31.0 PG) 29.6 RDW (11.5 - 14.5 %) 13.4 Plt Count (130 - 400 /CUMM) 332 MPV (7.4 - 10.4 FL) 7.6 Gran % (42.2 - 75.2 %) 56.6 Lymphocytes % (20.5 - 51.1 %) 33.6 Monocytes % (1.7 - 9.3 %) 8.1 Eosinophils % (0 - 5 %) 1.3 Basophils % (0.0 - 2.0 %) 0.4 Absolute Granulocytes (1.4 - 6.5 /CUMM) 3.7 Absolute Lymphocytes (1.2 - 3.4 /CUMM) 2.2 Absolute Monocytes (0.10 - 0.60 /CUMM) 0.5 Absolute Eosinophils (0.0 - 0.7 /CUMM) 0.1 Absolute Basophils (0.0 - 0.2 /CUMM) 0 PUBS MCHC (33.0 - 37.0 G/DL) 33.4 Toxicology Acetaminophen (10.0 - 30.0 ug/mL) < 10.0 L
[2017-02-12 14:47] VITALS: BP 106/58
[2017-02-12 23:13] VITALS: BP 91/46
[2017-02-13 00:32] VITALS: BP 100/60
[2017-02-13 06:34] VITALS: BP 90/58
--- NOTE | 2017-02-13 07:21 | PN- Housestaff ---
TONEY ALLEN,[facility] 02/13/17 0721: Subjective Follow-up For: Suicidal attempt Acetaminophen overdose Subjective: Patient was seen and examined today, she offered no new complaints, continued to have one-to-one sitter. Vital signs are stable, no overnight events reported by the nurse of the patient. Review of Systems Constitutional: Reports: see HPI. Objective Last 24 Hrs of Vital Signs/I&O Vital Signs Date Time Temp Pulse Resp B/P Pulse O2 O2 Flow FiO2 Ox Delivery Rate 02/13 0634 98.2 67 18 90/58 96 Room Air 02/13 0032 82 100/60 97 Room Air 02/12 2313 97.6 87 20 91/46 97 Room Air 02/12 1447 98.9 89 20 106/58 96 Room Air Intake & Output 02/13 1600 02/13 0800 02/13 0000 Intake Total 120 500 Output Total Balance 120 500 Intake, IV 0 Intake, Oral 120 500 Number 0 Bowel Movements Physical Exam General Appearance: Alert, Oriented X3, Cooperative, No Acute Distress Skin: No Rashes, No Breakdown, No Significant Lesion HEENT: Atraumatic, PERRLA, EOMI, Mucous Membr. moist/pink Neck: Supple, No JVD Cardiovascular: Regular Rate, Normal S1, Normal S2, No Murmurs Lungs: Clear to Auscultation, Normal Air Movement Abdomen: Normal Bowel Sounds, Soft, No Tenderness Neurological: Normal Gait, Normal Speech, Strength at 5/5 X4 Ext, Normal Tone, Sensation Intact, Cranial Nerves 3-12 NL, Reflexes 2+ Extremities: No Clubbing, No Cyanosis, No Edema, Normal Pulses Assessment/Plan Assessment: Mrs. Cullen is 21-year-old female with past medical history significant for previous suicide attempt September 2014 with Tylenol overdose, significant psychiatric history including suicidal ideation/attempt, anxiety, depression, bipolar, who comes in with chief complaint of suicidal attempt with a 87 tab of extra strength Tylenol ingestion. Plan: 1. Tylenol overdose: -Poison control was on board, the patient received loading dose of increased nonsustained followed by maintenance dose and frequent checking of acetaminophen blood level -NAC was discontinued yesterday based on poison control recommendation -Acetaminophen blood level normalized -Normal LFTs -Patient denied any abdominal pain, nausea, vomiting, diarrhea -Vital signs remained stable, afebrile 2. Suicidal ideation: -Psychiatric consultation was obtained, will follow recommendation -Continue home psych medication (Abilify 5 mg once daily, Wellbutrin XL 150 mg once daily , gabapentin 300 mg 3 times daily) -Continue one-to-one sitter -Patient will be discharged today to [facility] 3.Hypothyroidism: Chronic and stable * Continue levothyroxine 4. 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 * Continue Aldactone Code Full code Diet regular, finger foods only DVT prophylaxis Alps Consultations psych Problem List: 1. Depression with suicidal ideation 2. Tylenol overdose Pain Ratin Pain Location: None Pain Goal: Pain 4 or less Pain Plan: Mild pain pathway Tomorrow's Labs & Rationales: None Consulting Request: Consulting Specialty: Psychiatry DEANDRA BROCK MD 02/13/17 8738: Attending MD Review Statement Attending Statement Attending MD Statement: examined this patient, discuss w/resident/PA/SPECIAL SERVICE REPRESENTATIVE, agreed w/resident/PA/SPECIAL SERVICE REPRESENTATIVE, reviewed EMR data (avail), discussed with nursing, discussed with case mgmt, amended to note Attending Assessment/Plan: The patient was seen and discussed with house staff. Medically stable to transfer to [facility] for further evaluation.
--- NOTE | 2017-02-13 11:11 | Patient Discharge Instructions ---
Discharge Instructions General Discharge Information Special Instructions: -Please follow up with your PCP within one week after discharge. -Please follow up with your psychiatrist and therapist after discharge. Acute Coronary Syndrome Inclusion Criteria At DC or during hospital stay patient has or had the following: ACS DIAGNOSIS No Discharge Core Measures Meds if any: Prescribed or Continued at Discharge Meds if any: NOT Prescribed or Continued at Discharge Congestive Heart Failure Inclusion Criteria At DC or during hospital stay patient has or had the following: CHF DIAGNOSIS No Discharge Core Measures Meds if any: Prescribed or Continued at Discharge Meds if any: NOT Prescribed or Continued at Discharge Cerebrovascular accident Inclusion Criteria At DC or during hospital stay patient has or had the following: CVA/TIA Diagnosis No Discharge Core Measures Meds if any: Prescribed or Continued at Discharge Meds if any: NOT Prescribed or Continued at Discharge Venous thromboembolism Inclusion Criteria VTE Diagnosis No VTE Type NONE VTE Confirmed by (Test) NONE Discharge Core Measures - Per Current guidelines, there needs to be overlap - treatment for the first 5 days of Warfarin therapy. - If discharged on Warfarin prior to 5 days of - overlap therapy, the patient will need to be - assessed for post discharge needs including - *Post discharge parental anticoagulation - *Warfarin and/or parental anticoagulation education - *Follow up date to check INR post discharge At least 5 days overlap therapy as Inpatient Yes Meds if any: Prescribed or Continued at Discharge Note: Overlap Therapy is Warfarin and Anticoagulant Meds if any: NOT Prescribed or Continued at Discharge
[2017-02-13 14:32] VITALS: BP 100/72
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
--- NOTE | 2017-02-13 14:42 | Discharge Summary ---
Visit Information Visit Dates Admission Date: 02/10/17 Discharge Date: 02/13/17 Hospital Course Course Attending Physician: DEANDRA BROCK MD Primary Care Physician: CAN KESSLER MD Consulting Request: Consulting Specialty: Psychiatry Hospital Course: Mrs. Cullen is 21-year-old female with past medical history significant for previous suicide attempt September 2014 with Tylenol overdose, significant psychiatric history including suicidal ideation/attempt, anxiety, depression, bipolar, who comes in with chief complaint of suicidal attempt with 87 tab of extra strength Tylenol ingestion. Plan: 1. Tylenol overdose: -Poison control was on board, the patient received loading dose of NAC followed by maintenance dose f NAC and frequent checking of acetaminophen blood level -NAC was discontinued later in hospital stay based on poison control recommendation -Acetaminophen blood level normalized -Normal LFTs -Patient denied any abdominal pain, nausea, vomiting, diarrhea -Vital signs remained stable, afebrile 2. Suicidal ideation: -Psychiatric consultation was obtained -Continue home psych medication (Abilify 5 mg once daily, Wellbutrin XL 150 mg once daily , gabapentin 300 mg 3 times daily) -Continue one-to-one sitter -Patient can not leave [place] -Patient will be discharged to [facility] 3.Hypothyroidism: Chronic and stable * Continue levothyroxine 4. 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 * Continue Aldactone Code Full code Diet regular, finger foods only DVT prophylaxis Alps Consultations psych Allergies: Coded Allergies: NO KNOWN ALLERGIES (10/07/16) Disposition Summary Disposition Principal Diagnosis: Tylenol overdose Additional Diagnosis: Depression with Suicidal ideation/Attempt Discharge Disposition: home or self care Discharge Instructions General Discharge Information Code Status: Full Code Patient's Diet: Regular Patient's Activity: as tolerated Follow-Up Instructions/Appts: -Please follow up with your PCP within one week after discharge. -Please follow up with your psychiatrist and therapist after discharge. Medications at Discharge Discharge Medications: Continue taking these medications: Spironolactone (Spironolactone) 25 MG TABLET 1 Tablet ORAL DAILY Qty = 30 Comments: NOT GIVEN IN HOSPITAL Ergocalciferol (Vitamin D2) (Vitamin D2) 50,000 UNIT CAPSULE 1 Capsule ORAL EVERY 2 WEEKS Comments: NOT GIVEN IN HOSPITAL Bupropion HCl (Bupropion XL) 150 MG TAB.ER.24H 1 Tablet ORAL DAILY Qty = 90 Comments: Last Taken:02/13/17 Time: 0900AM Gabapentin (Gabapentin) 300 MG CAPSULE 1 Capsule ORAL THREE TIMES DAILY Qty = 180 Comments: Last Taken:02/13/17 Time: 0900AM Aripiprazole (Aripiprazole) 5 MG TABLET 1 Tablet ORAL DAILY Qty = 30 Comments: Last Taken:02/13/17 Time: 0900AM Levothyroxine Sodium (Levothyroxine Sodium) 50 MCG TABLET 1 Tablet ORAL DAILY Qty = 90 Comments: Last Taken:02/13/17 Time: 0600AM Copies To: VICTORIA ALLEN,CAN Attending MD Review Statement Documenting Attending: DEANDRA BROCK MD Other Findings: The patient was seen and agree with the plan of care upon discharge. Transfer to psychiatry service/[facility].
== END 2017-02-13 17:14 | DRG 918 ==
LOC: ENRESERVTM → ENRESERVDT → ERH 20:11 → 2NB 23:15 → ERHI 23:15 → 2NB 02-11 02:04
PROVIDERS: Internal Medicine Hematology & Oncology; Physician Assistant Medical; Student in an Organized Health Care Education/Training Program; ADMIT Student in an Organized Health Care Education/Training Program
DX: T39.1X2A Poisoning by 4-Aminophenol derivatives, intentional self-harm, initial encounter (principal); F31.9 Bipolar disorder, unspecified; E03.9 Hypothyroidism, unspecified; Y92.009 Unspecified place in unspecified non-institutional (private) residence as the place of occurrence of the external cause; F41.9 Anxiety disorder, unspecified; E28.1 Androgen excess
CPT/HCPCS: 2NBP; ERO; 36415; 80307; 81003; 81025; 82436; 96374; 99232; 99291; G0480; J0132; J2405; J7060

== ENCOUNTER 2017-02-13 09:43 | Inpatient (IN) | payer OTHER ==
[~2017-02-13 09:43] MED LIST changes: +ARIPIPRAZOLE5 M1 PO; +BUPROPION XL150 MG PO; +GABAPENTIN300 M2 PO; +LEVOTHYROXINE50 MCG PO; +SPIRONOLACTONE25 M1 PO; +VITAMIN D250000 UNIT PO
[2017-02-13 17:27] VITALS: BP 114/69
[2017-02-13 19:45] VITALS: BP 114/65
[2017-02-14 07:53] VITALS: BP 111/68
[2017-02-14 12:28] VITALS: BP 119/71
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
--- NOTE | 2017-02-14 14:01 | SOCIAL WORKER [place] PLAN PSYCH ---
Treatment Plan - Please Document: - Evidence that there is ongoing collaboration between - the patient and the interdisciplinary team, - including the patient's active participation and - responsibility for engaging in the treatment regimen, - and that the treatment plan is individualized and - relevant to the patient's conditions. - Treatment plan should reflect documentation indicating - that all active therapeutic efforts are included. Strengths/Capabilities: Supportive family Engaged in therapy Desire to feel better Physical Limitations (Interventions): None identified Patient Identified Trmt Goals: " I want to be safe." Discharge Plan: IOP Problem/Goals #1 Problem #1: suicidal ideation Goal (Short Term): Today I will attend 2 groups Today I will identify 2 stressors Today I will identify 2 positive supports Today I will work on recognizing 3 emotions I am feeling Goal (Punch Out Crew Member): Be free of suicidal thoughts/attempts Develop 3 coping skills to deal with depression Identify 3 positive support systems to call in crisis Develop a crisis plan with 3 clemente people Identify 2 positive traits per week about myself Identify 2 things I have to look forward to Identify 2 positive people in my life and 1 thing I appreciate about them Interventions: Learn ways to manage depressive symptoms accordingly and identify positive supports to manage life stressors and mood fluctuations. Modalities: Encourage groups, education on depression, provide CBT treatment, family meeting. DSM5/PS Stressors/Medical Prob Diagnosis' (DSM 5, Stressors, Medical): Unspecified bipolar d/o F31.9 Current GAF: 24 Treatment Team - Responsibilities of members of the treatment team include: - Medication Management- MD or CORSETS SALESPERSON - Medication Administration and Monitoring- Nurse - Group Therapy- Occupational Therapist - 1:1 Therapy,Disch Planning,family involvement-Help Aid
--- NOTE | 2017-02-14 14:01 | SOCIAL WORKER PROG NOTE PSYCH ---
Social Work Progress Note Progress Note SW met with patient for the first time today. Patient reported "feeling better" since coming into the hospital. Patient reports her OD attempt was impulsive and not well thought out. She reports regretting her decision and denies SI at present. Patient plans to speak to her mother this evening to schedule family meeting for tomorrow afternoon. Patient was easy to engage in conversation and mood appeared normal. Patient reports currently residing with her mother in a safe environment and plans to return there after she discharges the hospital. Patient reports that she has been sober from all substances since August 2016. She reports a hx of abusing alcohol, marijuana and crack. Patient is currenlty not in AA/NA but reports past involvement.
--- NOTE | 2017-02-14 15:33 | PN- Att Addend ---
Attending Addendum Attending Brief Note Patient is a 21-year-old female with history significant for bipolar disorder and anxiety disorder. She was admitted to the general medical service following a suicide attempt where she overdosed on 87 pills of extra strength Tylenol. Following management and medical service she was transferred to the inpatient psychiatric unit for further management. She currently offers no complaints. Denies nausea vomiting. Denies abdominal pain. Denies close pressure diarrhea. Denies dysuria. Denies heat or cold intolerance. Denies chest pain or shortness of breath. Denies palpitations. Denies any skin rash. Vital Signs Date Time Temp Pulse Resp B/P Pulse O2 O2 Flow FiO2 Ox Delivery Rate 02/14 1228 72 119/71 02/14 0831 88 111/68 02/14 0753 97.9 88 11168 02/13 1945 98.9 79 114/65 02/13 1727 98.9 84 114/69 Gen. appearance: Not in acute distress Heart: S1-S2 regular with no audible normal Lungs: Clear to auscultation bilaterally Abdomen: Soft, nontender with normal bowel sounds Skin: Intact with no rashes Extremities: No pedal edema Last laboratory data reviewed. Problems: 1. Hypothyroidism 2. Elevated testosterone; secondary to lithium use 3. Bipolar disorder 4. Suicidal ideation/attempt Plan: -Continue her Synthroid. -Continue Aldactone which she is taking for her elevated testosterone. -Continue management of her bipolar disorder as directed by the psychiatric service. -Please recall the medical team as needed in the future.
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
[2017-02-14 16:52] VITALS: BP 127/64
[2017-02-14 19:28] VITALS: BP 116/67
[2017-02-15 07:48] VITALS: BP 117/62
[2017-02-15 12:06] VITALS: BP 125/65
[2017-02-15 16:18] VITALS: BP 126/74
--- NOTE | 2017-02-15 16:35 | SOCIAL WORKER PROG NOTE PSYCH ---
Social Work Progress Note Progress Note Had family meeting today with patient, patients mother, and Julian Pratt APRN. Patients mother provided list of patients med hx. Julian discussed our initial recommendation for [place] as a mood stabalizer and to help with suicidal thoughts. Patients mother reported that patient has been on [place] before with poor effect and they are not open to restarting it. Patient did agree to trial Depakote while in the hospital. Patients mother appears to be positive support system for patient. Patient did report continued depression and anxiety today but no plan or intent to hurt herself. Patient did make statements about wanting to discharge soon and not be in the hospital during our meeting. This telegraphic typewriter repairer offerred patient 3 day paper to sign and explained her right as a patient. Patient intially thought she wanted to sign but ended up deciding not to. Patient agreed to remain in the hospital to trial Depakote and allow us time to set up safe aftercare plans.
--- NOTE | 2017-02-15 16:35 | CP SOUTH PROGRESS NOTE PSYCH ---
Psych (Inpt) Progress Note Progress Note Progress Note: I discussed this patient's progress to date, current mental status, treatment process in the context of the treatment plan, and discharge planning with staff/ team in the daily morning inpatient team meeting. I also met with the patient myself in individual session. OBJECTIVE: Current Medications Sig/Jaison Start time Last Medication Dose Route Stop Time Status Admin Al Hydroxide/Mg 30 ML Q4-6 PRN PRN 02/13 1545 AC Hydroxide PO Aripiprazole 5 MG DAILY@02/14 08 AC 02/15 PO 0751 Benztropine Mesylate 1 MG DAILY@02/14 08 DC PO Bupropion HCl 150 MG 02/14 08 AC 02/15 PO 0752 Divalproex Sodium 500 MG 799,02/15 1630 UNVr PO Gabapentin 300 MG BID@0800,02/13 2200 AC 02/15 PO 0752 Gabapentin 300 MG Q6P PRN 02/13 1545 AC PO Levothyroxine Sodium 0.05 MG DAILY AC 02/14 07 AC 02/15 PO 0707 Magnesium Hydroxide 30 ML AT BEDTIME PRN 02/13 1545 AC PO Olanzapine 5 MG DAILY@0800,02/13 2200 DC 02/13 PO 2135 Propranolol HCl 60 MG DAILY@02/14 08 DC PO Spironolactone 25 MG DAILY@02/14 08 AC 02/15 PO 0752 Trazodone HCl 50 MG AT BEDTIME NEED.. 02/13 1545 AC PO Vital Signs Date Time Temp Pulse Resp B/P Pulse O2 O2 Flow FiO2 Ox Delivery Rate 02/15 1618 83 126/74 02/15 1206 76 125/65 02/15 0816 98.0 79 117/62 02/15 0748 98.0 79 117/62 02/14 1928 98.2 71 116/67 02/14 1652 70 127/64 ASSESSMENT: Today I met the patient in a family meeting along with her mother, and social work coordinator Nicole Enciso LCSW. We reviewed the patient's medications, including her history of having been on many different medications over the past few years. We strongly suggested that the patient resume lithium for its anti-suicidal properties. The patient, and especially her mother, adamantly declined to try lithium again. Mother stated that in the recent past, patient did extremely poorly on lithium, had thyroid and kidney problems, tremors, and was emotionally unstable while taking lithium. Patient's mother verbalized understanding and agreement that the patient is a serious suicide risk. We reviewed other medication options, and the patient and her mother agreed to try Depakote as a mood stabilizer. We reviewed risks, benefits, side effects of Depakote including alopecia and possible hepatic complications. Patient and her mother verbalize understanding and agreement to take these medications. Patient stated that she would also in the future like to increase Wellbutrin, as she feels she needs more of an antidepressant. She reports continuing depression and anxiety, however states she is feeling better than when she arrived. Depression:6/10; Anxiety:8/10 (with 10 the worst.) Denies suicidal ideation, homicidal ideation, auditory hallucinations, visual hallucinations, paranoid ideation. Patient is able to contract for safety while here on the unit. Speech is well articulated, goal-directed, average in rate, volume and tone. Somewhat flat affect. Alert and oriented 3. Poor insight. The patient understands the risks/benefits/side effects of the medication and is agreeable to continue taking them. We reviewed with the patient and her mother the patient's right to sign a three- day paper for expedited discharge. Patient verbalized understanding of her rights. PLAN: Depakote 500 mg twice daily. Depakote level on Sunday morning. Patient declines to take olanzapine, Cogentin and propranolol. These medications have been discontinued. Continue with other current management as patient is improving. Continue to provide support and encouragement.
[2017-02-15 19:39] VITALS: BP 118/70
[2017-02-16 07:59] VITALS: BP 127/68
--- NOTE | 2017-02-16 11:41 | CP SOUTH PROGRESS NOTE PSYCH ---
Psych (Inpt) Progress Note Progress Note Progress Note: I discussed this patient's progress to date, current mental status, treatment process in the context of the treatment plan, and discharge planning with staff/ team in the daily morning inpatient team meeting. I also met with the patient myself in individual session. SUBJECTIVE: "My head feels different, in a good way." OBJECTIVE: Current Medications Sig/Jaison Start time Last Medication Dose Route Stop Time Status Admin Al Hydroxide/Mg 30 ML Q4-6 PRN PRN 02/13 1545 AC Hydroxide PO Aripiprazole 5 MG DAILY@02/14 0800 AC 02/16 PO 0752 Benztropine Mesylate 1 MG DAILY@02/14 08 DC PO Bupropion HCl 300 MG 02/17 0800 UNVr PO Bupropion HCl 150 MG 02/14 08 DC 02/16 PO 0752 Divalproex Sodium 500 MG .STK-MED ONE 02/15 1725 DC PO 02/15 1726 Divalproex Sodium 500 MG 799,02/15 1630 AC 02/16 PO 0752 Gabapentin 300 MG BID@0800,02/13 2200 AC 02/16 PO 0752 Gabapentin 300 MG Q6P PRN 02/13 1545 AC PO Levothyroxine Sodium 0.05 MG DAILY AC 02/14 07 AC 02/16 PO 0636 Magnesium Hydroxide 30 ML AT BEDTIME PRN 02/13 1545 AC PO Olanzapine 5 MG DAILY@0800,02/13 2200 DC 02/13 PO 2135 Propranolol HCl 60 MG DAILY@02/14 08 DC PO Spironolactone 25 MG DAILY@02/14 0800 AC 02/16 PO 0752 Trazodone HCl 50 MG AT BEDTIME NEED.. 02/13 1545 AC PO Vital Signs Date Time Temp Pulse Resp B/P Pulse O2 O2 Flow FiO2 Ox Delivery Rate 02/16 0759 97.2 98 127/68 02/15 1939 97.8 93 118/70 02/15 1618 83 126/74 02/15 1206 76 125/65 ASSESSMENT: Patient reports she is improving. Reports improved mood, improvements in depression and anxiety. States that she feels anxious about the future. Complains that prior to going to sleep at night, "I think too much." Reports tolerating her medications, including Depakote well, apparently to good effect. "I'm feeling more hopeful." In response to discussion during our family meeting yesterday, patient acknowledges and is in agreement that her mother will keep medications locked up in the safe, and distribute them as prescribed to the patient. They will no longer be keeping acetaminophen in the home. We reviewed the risks, benefits, and side effects of Depakote again today. Today we focused on the possible side effect of polycystic ovarian syndrome. Patient verbalized understanding, and agrees to continue Depakote. Depression:02/02; Anxiety:06/04 (with 10 the worst.) Patient states that she's feeling that depression and anxiety are "getting better." Denies suicidal ideation, homicidal ideation, auditory hallucinations, visual hallucinations, paranoid ideation. Patient states and also believes that she will not kill herself. Speech is well articulated, goal-directed, average in rate, volume and tone. Alert and oriented 3. Calm and cooperative this morning. At times, smiling. Once again, we reviewed the patient's right and option to sign a three-day paper for expedited discharge. Patient states that she has decided not to sign a three-day paper, and would like to stay in the hospital to get better, but nevertheless hopes to be discharged as soon as clinically indicated. The patient understands the risks/benefits/side effects of the medication and is agreeable to continue taking them. PLAN: Depakote level Sunday morning. Increase Wellbutrin XL to 300 mg tomorrow morning for continuing depression. Continue with other current management as patient is improving. Continue to provide support and encouragement.
[2017-02-16 12:11] VITALS: BP 131/62
--- NOTE | 2017-02-16 15:21 | SOCIAL WORKER PROG NOTE PSYCH ---
Social Work Progress Note Progress Note Patient reports improved mood today and believes starting new medication is helping her. Patient presents with flat affect and offers no complaints at present. Patient seen attending groups on the unit and interacting with peers. This song writer sent referral to [facility] today and they are looking into whether or not the patients insurance is in network with their program. They will let me know. Patient also inquired about other group programs such as DBT groups. I will look into local programs that offer DBT groups as well. Patient shared about possibly seeking a new outpatient therapist. She reported that she has been with her current therapist for 5 years and is unsure if she wants to continue with her. She reports possibly wanting a change but at the same time reports feeling close with her therapist and trusting her. Patient states that she is planning to talk to her mom about this and get her opinion before making any final decisions.
[2017-02-16 15:57] VITALS: BP 125/60
[2017-02-16 19:51] VITALS: BP 126/66
[2017-02-17 08:08] VITALS: BP 121/59
[2017-02-17 12:12] VITALS: BP 125/63
[2017-02-17 16:31] VITALS: BP 134/64
[2017-02-17 19:35] VITALS: BP 126/64
--- NOTE | 2017-02-17 21:30 | CP SOUTH PROGRESS NOTE PSYCH ---
Psych (Inpt) Progress Note Progress Note Include the following elements, when applicable: Involvement in the active treatment of the patient with behavioral observations of the patient and the patient's response to the treatment. Review of the ongoing treatment process in the context of the treatment plan. Indication of how multi-disciplinary staff members are carrying out the treatment plan. Plans for future interventions and recommendations for revision of the treatment plan. Liaison with other physicians/providers. Progress Note: PSYCHIATRIST (COVERING) NOTE, 02/17/2017: I am covering this patient today for Julian Partt APRN, discussed patient' s interval progress and current mental status with staff and met with her myself in individual session today; I am acquainted with her from a previous [facility] admission; she recognized me and appeared euthymic, was pleasant and responsive. Patient denied any negative effects/side effects on increased dose of Wellbutrin (up to 300mg daily) or current dose of Depakote titrated up to 1, 000mg/day; she will have an initial valproic acid level drawn tomorrow AM, 2016. Patient told me she had developed problematic effects from [place] in terms of her endocrine and especially renal status though today in reviewing her creatinine and TSH/thyroid functions going back I could not find any abnormalities; she is on a low dose of Synthroid, 50mcg/day.
[2017-02-18 08:13] VITALS: BP 124/67
[2017-02-18 12:12] VITALS: BP 125/60
[2017-02-18 15:54] VITALS: BP 128/68
[2017-02-18 19:57] VITALS: BP 140/76
--- NOTE | 2017-02-18 21:33 | CP SOUTH PROGRESS NOTE PSYCH ---
Psych (Inpt) Progress Note Progress Note Include the following elements, when applicable: Involvement in the active treatment of the patient with behavioral observations of the patient and the patient's response to the treatment. Review of the ongoing treatment process in the context of the treatment plan. Indication of how multi-disciplinary staff members are carrying out the treatment plan. Plans for future interventions and recommendations for revision of the treatment plan. Liaison with other physicians/providers. Progress Note: PSYCHIATRIST (COVERING) NOTE, 02/18/2017: I discussed this patient's progress to date and current mental status with staff and met with her again myself in individual session on this date. Serum valproic acid level this AM was already 79.6mcg/ml and Depakote well tolerated at dose of 500mg 2x/day; patient denies any side effects from this medication and is already showing evidence of benefit, calming, increased organization of thought and insight; she plans to stay with this medication after discharge. Patient's mood is improving but without any signs of a hypomanic surging on the increased dose of Wellbutrin. Patient wishes to f/u with IOP elsewhere upon discharge and would, I think, be a candidate for an ambulatory DBT program.
[2017-02-19 07:41] VITALS: BP 134/65
--- NOTE | 2017-02-19 09:03 | CP SOUTH PROGRESS NOTE PSYCH ---
Psych (Inpt) Progress Note Progress Note Include the following elements, when applicable: Involvement in the active treatment of the patient with behavioral observations of the patient and the patient's response to the treatment. Review of the ongoing treatment process in the context of the treatment plan. Indication of how multi-disciplinary staff members are carrying out the treatment plan. Plans for future interventions and recommendations for revision of the treatment plan. Liaison with other physicians/providers. Progress Note: [I discussed this patient's progress to date, current mental status, treatment process in the context of the treatment plan, and discharge planning with staff/ team in the daily morning inpatient team meeting. I also met with the patient myself in individual session.] S: "I feel a lot better!" O: Current Medications Sig/Jaison Start time Last Medication Dose Route Stop Time Status Admin Al Hydroxide/Mg 30 ML Q4-6 PRN PRN 02/13 1545 AC Hydroxide PO Aripiprazole 5 MG DAILY@02/14 08 AC 02/19 PO 0820 Bupropion HCl 300 MG 02/17 0800 AC 02/19 PO 0820 Divalproex Sodium 500 MG 799,02/15 1630 AC 02/19 PO 0820 Gabapentin 300 MG BID@0800,2200 02/13 2200 AC 02/19 PO 0820 Gabapentin 300 MG Q6P PRN 02/13 1545 AC PO Levothyroxine Sodium 0.05 MG DAILY AC 02/14 0700 AC 02/19 PO 0710 Magnesium Hydroxide 30 ML AT BEDTIME PRN 02/13 1545 AC PO Melatonin 10 MG AT BEDTIME 02/17 2230 AC 02/18 PO 2132 Spironolactone 25 MG DAILY@02/14 0800 AC 02/19 PO 0820 Trazodone HCl 50 MG AT BEDTIME NEED.. 02/13 1545 AC PO Vital Signs Date Time Temp Pulse Resp B/P Pulse O2 O2 Flow FiO2 Ox Delivery Rate 02/19 0741 97.8 88 134/65 02/18 1957 98.1 92 140/76 02/18 1554 78 128/68 02/18 1212 98.6 77 125/60 Laboratory Tests 02/18 0520 Toxicology Valproic Acid (50 - 120 ug/mL) 79.6 A: Chart, progress notes, labs, VS, and medication liste were reviewed. 02/18/17 VPA = 79.6. I am covering this patient today for Julian Pratt APRN. The patient is a 21-year old single, female with a longstanding psychiatric history including bipolar disorder, cluster B traits, polysubstance abuse and prior lethal suicide attempts. Prior to current [facility] voluntary admission, she was brought into ED by her mother s/p intentional overdose on Tylenol on 02/10/17. She was found to have an elevated acetaminophen level. She received four doses of acetylcysteine as well as supportive care, and was medically stabilized on inpatient medical unit. On encounter today, patient presented A&Ox4. Eye contact was appropriate. Speech was normal in rate, tone and volume. She appeared well-groomed. Affect appeared calm and full-range. Mood was "a lot better!" She reported feeling mildly more tired than usual throughout the day, and asked if this could be due to Depakote. Reviewed that fatigue is a temporary SE of Depakote, and again reviewed the risk /benefit/SE profiles of Depakote with the patient who verbalized understanding of all med education. She reported having a stable appetite. She reported fair sleep. She denied feeling hopeless, helpless, worthless or guilty. She denied racing thoughts. She reported depression of 0/10 (10 being the worst) and anxiety of 6/10 (10 being the worst) secondary to anticipating discharge from hospital. She denied passive and active suicidal ideation, plans and intent. Denied homicidal ideation, auditory and visual hallucinations. She was focused on engaging in a DBT program post-discharge and reported that her mother found a DBT group in [place]. Patient expressed uncertainty about whether she remains willing to follow up with IOP post-discharge given multiple previous failed IOP trials. Patient was encouraged to discuss these plans with assigned ASSOCIATE PROFESSOR OF MANAGEMENT Nicole Diggs. I also informed Nicole RODRIGUEZW of patient's thoughts about disposition planning. Thought process was organized and linear. Thought content was appropriate but mildly anxious. Cognition was grossly intact. There was no evidence of paranoia or sotero delusions. Patient reported tolerating all medications well and denied acute untoward medications effects. Patient agreeable to continue taking them. P: 1. Continue monitoring patient on unit for safety and mood. 2. Continue current psychotropic medications. 3. Clarify dispo plans. Patient likely to discharge tomorrow.
--- NOTE | 2017-02-19 11:35 | SOCIAL WORKER PROG NOTE PSYCH ---
Social Work Progress Note Progress Note Patient presents today with bright mood and displaying a full range affect during our meeting. Patient reported a good weekend overall. She reported both her mother and father visited her, and her fathers visit was a surprise which she was happy about. Patient denies SI/HI/AH/VH at present and reports feeling ready to return home in the near future. Patient reports tolerating med changes over the weekend and reports her only side effect to be feeling tired. Patient has agreed to step down to [facility] and is open to looking into [facility] IOP in [place]. She is aware that they also have a DBT group but it will be determined at the evaluation which groups she should start with. I have faxed referral to [facility] and waiting for call back to schedule intake. I am also still waiting to hear back from [facility] in order to determine if they participate with her insurance as well. Patient is aware and anxious to determine aftercare plan with anticipation for discharge tomorrow.
[2017-02-19 12:09] VITALS: BP 117/69
[2017-02-19 16:05] VITALS: BP 128/63
[2017-02-19 19:45] VITALS: BP 132/67
[2017-02-20 07:41] VITALS: BP 128/57
[2017-02-20 12:06] VITALS: BP 113/47
[2017-02-20] MEDS ORDERED: ABILIFY5 M1 PO (12:08)
[2017-02-20] MEDS ORDERED: BUPROPION XL300 M1 PO (12:08)
[2017-02-20] MEDS ORDERED: GABAPENTIN300 M2 PO (12:08)
[2017-02-20] MEDS ORDERED: MELATONIN5 M7 PO (12:08)
--- NOTE | 2017-02-20 12:08 | SOCIAL WORKER PROG NOTE PSYCH ---
Social Work Progress Note Progress Note Patient to discharge the hospital today. Patient denies SI/HI/AH/VH at present and presents with brighter mood and affect congruent to mood. Patient reports looking forward to returning home today. Patients mother will be picking her up and patient is able to contract for safety. Patient has intake at [facility] next 02/27/17 @9am. Patient plans to talk to them about both their IOP and DBT program and determine with them which program would be most suitable for her. Patient looking forward to starting a new program and is optomistic about treatment going forward.
[2017-02-20] MEDS ORDERED: DIVALPROEX SOD500 M2 PO (12:11)
--- NOTE | 2017-02-20 13:05 | DISCHARGE SUMMARY REPORT-PSYCH ---
Visit Information Visit Dates/Diagnosis' Admission Date: 02/13/17 Discharge Date: 02/20/17 Reason for Admission: Patient presented to [facility] emergency department status post intentional overdose on acetaminophen on 02/10/2017 in a suicide attempt. She disclosed ingestion to her mother who brought her to the hospital where she was found to have an elevated acetaminophen level. She received four doses of acetylcysteine as well as supportive care; she was medically stabilized on an inpatient medical unit prior to psychiatric inpatient admission. Psy Discharge Primary Diag: Bipolar disorder, MRE depressesd, severe s/p suicide attempt Psy Discharge Secondary Diag: History of alcohol use disorder, cannabis use disorder, and cocaine use disorder; hypothyroidism; elevated testosterone; vitamin D deficiency. Hospital Course Significant Lab Findings: Lab Valproic Acid 79.6 ug/mL 02/18/17 05 Urine Test NEGATIVE 02/10/172109 Course Complications: None. Consultations: The patient was seen for admission history and physical by Dr. Steven Acosta. Please see his note for additional information. Allergies: Coded Allergies: NO KNOWN ALLERGIES (10/07/16) Hospital Course/TX Response: The patient was monitored on the unit for safety, suicidal ideation, and mood. She participated in multimodal treatments on the unit. Wellbutrin XL was increased from 150mg daily to 300mg daily for depression. Abilify 5mg was continued for mood stabilization/depression. Gabapentin was decreased from 300mg three times daily to 300mg twice daily for anxiety, and Depakote DR was started at 500mg twice daily for mood stabilization. She reported tolerating all medications well and denied untoward medication effects. During the hospital course, the patient's mood and affect improved. Suicidal ideation remitted. A family meeting was held with the patient, her mother, Nicole Diggs LCSW, and Julian Pratt APRN. The patient's treatment progress, medication regimen, level of safety and discharge planning were reviewed and discussed. A trial of [place] was strongly suggested during this meeting for mood stabilization and suicide prevention. Both the patient and her mother were strongly opposed to this suggestion given the patient's previous trial on [place] and past poor efficacy, in addition to her reportedly experiencing tremors, thyroid and kidney problems, and emotional instability. The patient was agreeable to Depakote trial for mood stability. Both the patient and her mother verbalized understanding of the risk/benefit/side effect profiles of Depakote, including alopecia and possible hepatic complications. The patient was also educated on the teratogenic effects associated with Depakote by this sign writer letterer or painter on discharge. Patient verbalized understanding of all medication education. The patient and her mother were also agreeable with the patient following up with [facility] level of care post-discharge. On the date of discharge, 02/20/17, the patient presented alert and oriented to person, place, time and situation. She described her mood as "a lot better." Affect was calm and full range. Eye contact was appropriate. Speech was normal in rate, tone and volume. She had no complaints. She denied feeling hopeless, helpless, worthless, and guilty. She reported depression of 2/10 (10 being the worst) and anxiety of 5/10 (10 being the worst) . She denied passive and active suicidal ideation, plans and intent. She stated and also believed she will not kill herself or others. She identified protective factors of "my parents." She denied homicidal ideation, auditory and visual hallucinations. She denied racing thoughts. She reported her sleep and appetite were stable. Thought process was organized and goal-directed. Thought content was appropriate. Cognition was grossly intact. She was future oriented, and expressed goals to begin volunteering at the [employer] and to engage in [facility]. She also expressed interest in contacting a DBT group based out of [place], [place], which her mother found information on. The patient reported tolerating all medications well and denied untoward medication effects. The patient reported feeling safe and ready for discharge. Discharge HBIPS - Tobacco Use Treatment Offered Post DC Medications Offered: NA-No Tob Use >30 days Post DC Tobacco Treatment Plan: NA-No Tobacco use >30days - EtOH/Drug Use D/O Treatment Offered Post DC Medications Offered: NA-No EtOH/Drug Use D/O Post DC EtOH/SubAbuse TX Plan: NA-No EtOH/Drug Use D/O Metabolic Screening - Screen if on a Neuroleptic Medication - Metabolic screening should include: - Blood Pressure, BMI, Glucose or Hgb A1c, & a - Lipid profile from within the past 365 days. Metabolic Screening () Not Applicable, patient not on a neuroleptic. OR ([X]) Patient on a neuroleptic(s) . Enter below results for Glucose or Hemoglobin A1C, and lipid panel if obtained during the last 365 days. BMI: Blood Pressure: 113/47 Laboratory Results (If applicable): Lab Cholesterol 184 MG/DL 12/28/16 1000 Cholesterol/HDL Ratio 7 % H 12/28/16 1000 HDL Cholesterol 28 mg/dL L 12/28/16 1000 Hemoglobin A1c 5.1 % 10/08/16 0640 LDL Cholesterol, Calc 126 mg/dL 12/28/16 1000 Triglycerides 151 mg/dL H 12/28/16 1000 Discharge Instructions General Discharge Information Discharge Medications: Discharge Medications- (Dose, route, freq, indication): HOME MEDICATION LIST START taking these NEW Home Medications: Gabapentin Dose: ORAL, BID@0800,2200 for Qty: 28 Printed (Gabapentin) 300 MG 300 Milligram anxiety Refills: 0 CAPSULE Take 1 capsule by mouth twice daily. Last Taken:02/20/17 Time:8am Bupropion HCl Dose: ORAL, DAILY @8 AM for Qty: 14 Printed (Bupropion XL) 300 300 Milligram depression Refills: 0 MG TAB.ER.24H Take 1 tablet by mouth every morning. Last Taken:02/20/17 Time:8am Aripiprazole Dose: ORAL, DAILY@0800 for Qty: 14 Printed (Abilify) 5 MG 5 Milligram mood stabilization Refills: 0 TABLET Take 1 tablet by mouth every morning. Last Taken:02/20/17 Time:8am Melatonin Dose: ORAL, AT BEDTIME for Qty: 28 Printed (Melatonin) 5 MG 10 Milligram insomnia Refills: 0 TABLET Take 2 tablets (10mg) by mouth at bedtime. Last Taken:02/19/17 Time:10pm Divalproex Sodium Dose: ORAL, 0800,2000 for mood Qty: 28 Printed (Divalproex Sodium) 500 Milligram stabilization Refills: 0 500 MG TABLET.DR Take 1 tablet by mouth every morning and 1 tablet at bedtime. Last Taken:02/20/17 Time:8am CONTINUE taking these Home Medications: Spironolactone Dose: ORAL, DAILY for (Spironolactone) 25 MG 1 Tablet ELEVATED TESTOSTERONE TABLET Last Taken:02/20/17 Time:8am Ergocalciferol (Vitamin Dose: ORAL, EVERY 2 WEEKS for D2) (Vitamin D2) 50,000 1 Capsule VITAMIN D UNIT CAPSULE NOT GIVEN IN HOSPITAL Levothyroxine Sodium Dose: ORAL, DAILY for (Levothyroxine Sodium) 1 Tablet HYPOTHYROID 50 MCG TABLET Last Taken:02/20/17 Time:6am Multiple Neuroleptics: ([X]) Not Applicable OR Document below three failed attempts at monotherapy, or a plan to taper to monotherapy, or augmentation of Clozapine. () Patient's Diet: Regular. Patient's Activity: No restrictions. DC Disposition: Patient to return to home and mother. Recommendations: The patient was advised to please take her medications as prescribed. She was advised to follow-up with scheduled IOP intake at [facility]. She was advised that if she should become sexually active to use barrier methods of protection, or to speak with her PCP about going on oral contraceptive given the teratogenic effects of Depakote. She was additionally advised that in the event of an emergency to call 911/go to nearest emergency department. Patient verbalized understanding of all instructions. Referred To: Post Discharge Referrals Provider Referral Service Date: 02/27/17 Referred To: [[facility]] Notes: [facility] intake: 02/27/17 9AM-11AM [address] [place] [address] (Free parking in back of building) [phone] Copies To: [facility]
--- NOTE | 2017-02-20 13:23 | CP SOUTH PROGRESS NOTE PSYCH ---
Psych (Inpt) Progress Note Progress Note Include the following elements, when applicable: Involvement in the active treatment of the patient with behavioral observations of the patient and the patient's response to the treatment. Review of the ongoing treatment process in the context of the treatment plan. Indication of how multi-disciplinary staff members are carrying out the treatment plan. Plans for future interventions and recommendations for revision of the treatment plan. Liaison with other physicians/providers. Progress Note: [I discussed this patient's progress to date, current mental status, treatment process in the context of the treatment plan, and discharge planning with staff/ team in the daily morning inpatient team meeting. I also met with the patient myself in individual session.] S: "I'm excited to go home! I feel a lot better." O: Current Medications Sig/Jaison Start time Last Medication Dose Route Stop Time Status Admin Al Hydroxide/Mg 30 ML Q4-6 PRN PRN 02/13 1545 AC Hydroxide PO Aripiprazole 5 MG DAILY@02/14 08 AC 02/20 PO 0804 Bupropion HCl 300 MG 02/17 0800 AC 02/20 PO 0804 Divalproex Sodium 500 MG 799,02/15 1630 AC 02/20 PO 0804 Gabapentin 300 MG BID@0800,2200 02/13 2200 AC 02/20 PO 0804 Gabapentin 300 MG Q6P PRN 02/13 1545 AC PO Levothyroxine Sodium 0.05 MG DAILY AC 02/14 0700 AC 02/20 PO 0602 Magnesium Hydroxide 30 ML AT BEDTIME PRN 02/13 1545 AC PO Melatonin 10 MG AT BEDTIME 02/17 2230 AC 02/19 PO 2134 Spironolactone 25 MG DAILY@0802/14 0800 AC 02/20 PO 0804 Trazodone HCl 50 MG AT BEDTIME NEED.. 02/13 1545 AC PO Vital Signs Date Time Temp Pulse Resp B/P Pulse O2 O2 Flow FiO2 Ox Delivery Rate 02/20 1206 76 113/47 02/20 0741 97.9 94 128/57 02/19 1945 98.0 81 132/67 02/19 1605 76 128/63 A: Chart, progress notes, VS, labs and medication list were reviewed. Met with the patient today, on the date of discharge. She presented alert and oriented to person, place, time and situation. She described her mood as "a lot better." Affect was calm and full range. Eye contact was appropriate. Speech was normal in rate, tone and volume. She had no complaints. She denied feeling hopeless, helpless, worthless, and guilty. She reported depression of 2/10 (10 being the worst) and anxiety of 5/10 (10 being the worst) . She denied passive and active suicidal ideation, plans and intent. She stated and also believed she will not kill herself or others. She identified protective factors of "my parents." She denied homicidal ideation, auditory and visual hallucinations. She denied racing thoughts. She reported her sleep and appetite were stable. Thought process was organized and goal-directed. Thought content was appropriate. Cognition was grossly intact. She was future oriented, and expressed goals to begin volunteering at the [employer] and to engage in [facility]. She also expressed interest in contacting a DBT group based out of [place], [place], which her mother found information on. The patient reported tolerating all medications well and denied untoward medication effects. The patient reported feeling safe and ready for discharge. P: 1. Discharge today into the care of mother. 2. F/u with [facility] on 02/27/17 at 9AM for intake. 3. All discharge prescriptions were printed, reviewed with the patient, and provided to patient on discharge. Patient reported having adequate supplies of rx Spironolactone and Synthroid at home. 4. In the event of an emergency, call 911/go to nearest emergency department. Patient verbalized understanding of instruction.
== END 2017-02-20 15:50 | DRG 885 ==
LOC: CP SOUTH 09:43
PROVIDERS: ADMIT Psychiatry & Neurology Psychiatry
DX: F31.9 Bipolar disorder, unspecified (principal); E55.9 Vitamin D deficiency, unspecified; F12.10 Cannabis abuse, uncomplicated; F14.10 Cocaine abuse, uncomplicated; E03.9 Hypothyroidism, unspecified
CPT/HCPCS: 36415